=== PATIENT | male | born 1945 | race Caucasian/White ===

== ENCOUNTER 2020-04-27 12:41 | Observation (INO) | payer OTHER ==
[~2020-04-27] VITALS: Ht 172.7 cm; Wt 68.0 kg
[~2020-04-27 12:41] MED LIST: B-122500 MCG SL; BETAPACE80 MG PO; CHLORTHALIDONE50 MG PO; COUMADIN3 MG PO; COUMADIN4 MG PO; ECOTRIN81 MG PO; ELIQUIS5 M1 PO; FISH OIL 1,2001 EAC2 PO; GLUCOTROL5 MG PO; HYDRALAZINE HC100 MG PO; IMDUR ER TAB 3030 MG PO; KEFLEX CAP 500500 MG PO; KLOR-CON 1010 MEQ PO; LASIX20 MG PO; NIACIN ER500 MG PO; NIACIN250 MG PO; NIACIN500 M1 PO; NORVASC10 MG PO; PANTOPRAZOLE SO20 MG PO; PROTONIX40 MG PO; SINEMET 25-1001 EACH PO; SINEMET 25/100 T1 EA PO; TAMIFLU75 MG PO; THERAGRAN M TAB1 EA PO; ZESTRIL20 MG PO
[2020-04-27 13:23] LABS: HEMOGLOBIN 10.4 gm/dl (14.0-17.5); RED BLOOD COUNT 3.23 M/UL (4.20-5.50); WHITE BLOOD COUNT 10.4 K/UL (4.5-11.0)
[2020-04-27] MEDS ORDERED: LOPRESSOR 25 MG25 MG PO (15:52)
[2020-04-27] MEDS ORDERED: ALDACTONE50 MG PO (15:53)
[2020-04-27] MEDS ORDERED: VITAMIN B-1100 MG PO (15:53)
[2020-04-27] MEDS ORDERED: VITAMIN C500 M4 PO (16:02)
[2020-04-27] MEDS ORDERED: PROBIOTIC1 EAC1 PO (16:03)
[2020-04-28 00:51] LABS: HEMOGLOBIN 9.5 gm/dl (14.0-17.5); RED BLOOD COUNT 2.93 M/UL (4.20-5.50); WHITE BLOOD COUNT 8.6 K/UL (4.5-11.0)
[2020-04-28 01:14] LABS: BUN/CREATININE RATIO 27 (0-10)
[2020-04-30] MEDS ORDERED: LIPITOR TAB 2020 MG PO (17:00)
[2020-04-30] MEDS ORDERED: NICOTINE PATCH1 EAC2 TOP (17:00)
[2020-04-30] MEDS ORDERED: ASPIRIN EC81 MG PO (17:00)
[2020-04-30] MEDS ORDERED: NITROGLYCERIN0.4 MG SL (17:00)
[2020-06-14] MEDS ORDERED: ELIQUIS5 MG PO (07:34)
[2020-06-14] MEDS ORDERED: HYDRALAZINE HCL50 MG PO (07:35)
[2020-06-14] MEDS ORDERED: POTASSIUM CHLO20 ME1 PO (07:35)
[2020-06-14] MEDS ORDERED: SPIRONOLACTONE50 MG PO (07:36)
[2020-06-14] MEDS ORDERED: ST. JOSEPH ASPI81 M1 PO (07:36)
== END 2020-04-30 17:37 | disposition home or self-care (01) ==
LOC: ER1 12:41 → M/S 14:17 → CDU 14:17 → M/S 19:37
PROVIDERS: Emergency Medicine; Internal Medicine Cardiovascular Disease; Physician Assistant; Physician Assistant Medical; ADMIT Internal Medicine
DX: I25.110 Atherosclerotic heart disease of native coronary artery with unstable angina pectoris (principal); I25.5 Ischemic cardiomyopathy; I13.0 Hypertensive heart and chronic kidney disease with heart failure and stage 1 through stage 4 chronic kidney disease, or unspecified chronic kidney disease; E11.22 Type 2 diabetes mellitus with diabetic chronic kidney disease; N18.30 Chronic kidney disease, stage 3 unspecified; I50.32 Chronic diastolic (congestive) heart failure; I48.0 Paroxysmal atrial fibrillation; E78.5 Hyperlipidemia, unspecified; I25.2 Old myocardial infarction; I45.9 Conduction disorder, unspecified; F17.210 Nicotine dependence, cigarettes, uncomplicated; Z95.5 Presence of coronary angioplasty implant and graft; Z20.822 Contact with and (suspected) exposure to COVID-19; Z82.49 Family history of ischemic heart disease and other diseases of the circulatory system; Z79.01 Long term (current) use of anticoagulants; Z79.899 Other long term (current) drug therapy
CPT/HCPCS: ECHO; 36415; 71045; 78452; 80048; 80053; 80061; 82550; 82553; 82962; 83690; 83735; 83874; 83880; 84100; 84439; 84443; 84484; 85025; 85027; 85610; 85730; 93005; 93017; 93306; 94760; 96372; 96374; 96375; 99152; 99153; 99285; A9502; C1769; G0378; J0360; J1644; J2250; J2785; Q9965; U0002

== ENCOUNTER → 2020-05-25 | Outpatient (CLI) | payer OTHER ==
[~2020-05-25] MED LIST changes: +ALDACTONE50 MG PO; +AMIODARONE HCL200 MG PO; +ASPIRIN EC81 MG PO; +CEPHALEXIN500 MG PO; +CLINDAMYCIN HC300 MG PO; +ELIQUIS5 MG PO; +FERGON PO; +FISH OIL 1,2001 EAC1 PO; +HYDRALAZINE HCL50 MG PO; +HYDROCODON-ACE1 EAC4 PO; +LASIX40 MG PO; +LIPITOR TAB 2020 MG PO; +LIPITOR20 MG PO; +LOPRESSOR 25 MG25 MG PO; +MULTIVITAMIN1 EACH PO; +NICOTINE PATCH1 EAC2 TOP; +NITROGLYCERIN0.4 MG SL; +POTASSIUM CHLO20 ME1 PO; +PROBIOTIC1 EAC1 PO; +PROBIOTIC1 EAC2 PO; +PROTONIX 40 MG40 M1 PO; +SPIRONOLACTONE50 MG PO; +ST. JOSEPH ASPI81 M1 PO; +VITAMIN B-1100 M1 PO; +VITAMIN B-1100 MG PO; +VITAMIN C500 M4 PO
[2020-05-25 09:47] LABS: RED BLOOD COUNT 2.78 M/UL (4.20-5.50); WHITE BLOOD COUNT 10.4 K/UL (4.5-11.0)
== END ==
LOC: LAB 09:22
PROVIDERS: Internal Medicine Cardiovascular Disease
DX: I50.22 Chronic systolic (congestive) heart failure (principal); I25.5 Ischemic cardiomyopathy; I45.9 Conduction disorder, unspecified
CPT/HCPCS: 36415; 80048; 85025

== ENCOUNTER 2020-05-27 07:16 | Outpatient (CLI) | payer OTHER ==
[~2020-05-27] VITALS: Ht 172.7 cm; Wt 63.5 kg
[~2020-05-27 07:16] MED LIST changes: -AMIODARONE HCL200 MG PO; -CEPHALEXIN500 MG PO; -CLINDAMYCIN HC300 MG PO; -ELIQUIS5 MG PO; -FERGON PO; -FISH OIL 1,2001 EAC1 PO; -HYDRALAZINE HCL50 MG PO; -HYDROCODON-ACE1 EAC4 PO; -LASIX40 MG PO; -LIPITOR20 MG PO; -MULTIVITAMIN1 EACH PO; -POTASSIUM CHLO20 ME1 PO; -PROBIOTIC1 EAC2 PO; -PROTONIX 40 MG40 M1 PO; -SPIRONOLACTONE50 MG PO; -ST. JOSEPH ASPI81 M1 PO; -VITAMIN B-1100 M1 PO
[2020-05-27] MEDS ORDERED: ELIQUIS5 MG PO (08:46)
[2020-05-27] MEDS ORDERED: SINEMET 25-1001 EACH PO (08:47)
[2020-05-27] MEDS ORDERED: FERGON PO (08:47)
[2020-05-27] MEDS ORDERED: FISH OIL 1,2001 EAC1 PO (08:50)
[2020-05-27] MEDS ORDERED: LASIX40 MG PO (08:50)
[2020-05-27] MEDS ORDERED: HYDRALAZINE HCL50 MG PO (08:50)
[2020-05-27] MEDS ORDERED: MULTIVITAMIN1 EACH PO (08:53)
[2020-05-27] MEDS ORDERED: LOPRESSOR 25 MG25 MG PO (08:53)
[2020-05-27] MEDS ORDERED: VITAMIN B-1100 M1 PO (08:54)
[2020-05-27] MEDS ORDERED: POTASSIUM CHLO20 ME1 PO (08:54)
[2020-05-27] MEDS ORDERED: PROBIOTIC1 EAC2 PO (08:54)
[2020-05-27] MEDS ORDERED: PROTONIX 40 MG40 M1 PO (08:54)
[2020-05-27] MEDS ORDERED: ALDACTONE50 MG PO (08:54)
[2020-05-27] MEDS ORDERED: VITAMIN C500 M4 PO (08:55)
[2020-05-27] MEDS ORDERED: ECOTRIN81 MG PO (08:55)
[2020-05-27] MEDS ORDERED: LIPITOR20 MG PO (08:55)
[2020-05-27] MEDS ORDERED: CLINDAMYCIN HC300 MG PO (11:11)
[2020-05-27] MEDS ORDERED: HYDROCODON-ACE1 EAC4 PO (11:11)
[2020-05-27] MEDS ORDERED: CEPHALEXIN500 MG PO (11:11)
[2020-05-27] MEDS ORDERED: AMIODARONE HCL200 MG PO (12:50)
[2020-06-14] MEDS ORDERED: ELIQUIS5 MG PO (07:34)
[2020-06-14] MEDS ORDERED: HYDRALAZINE HCL50 MG PO (07:35)
[2020-06-14] MEDS ORDERED: POTASSIUM CHLO20 ME1 PO (07:35)
[2020-06-14] MEDS ORDERED: ST. JOSEPH ASPI81 M1 PO (07:36)
[2020-06-14] MEDS ORDERED: SPIRONOLACTONE50 MG PO (07:36)
== END 2020-05-28 11:35 | disposition home or self-care (01) ==
LOC: CATH 07:16 → PROG CARE 14:20 → CATH 05-28 11:35
DX: I13.0 Hypertensive heart and chronic kidney disease with heart failure and stage 1 through stage 4 chronic kidney disease, or unspecified chronic kidney disease (principal); E11.22 Type 2 diabetes mellitus with diabetic chronic kidney disease; N18.30 Chronic kidney disease, stage 3 unspecified; I50.22 Chronic systolic (congestive) heart failure; I25.5 Ischemic cardiomyopathy; I48.0 Paroxysmal atrial fibrillation; I25.10 Atherosclerotic heart disease of native coronary artery without angina pectoris; I25.2 Old myocardial infarction; K74.60 Unspecified cirrhosis of liver; F17.210 Nicotine dependence, cigarettes, uncomplicated; J44.9 Chronic obstructive pulmonary disease, unspecified; E78.5 Hyperlipidemia, unspecified; Z95.5 Presence of coronary angioplasty implant and graft; Z88.8 Allergy status to other drugs, medicaments and biological substances; Z79.82 Long term (current) use of aspirin; Z79.01 Long term (current) use of anticoagulants; Z79.899 Other long term (current) drug therapy
CPT/HCPCS: 33225; 33249; 71045; 93005; 93641; 99152; 99153; C1769; C1777; C1882; C1898; C1900; J1644; J2250; J2270; J2550; J3010; J3370; J7040; J7050; J7070; Q9965

== ENCOUNTER 2020-06-02 17:10 | Inpatient (IN) | payer OTHER ==
[~2020-06-02] VITALS: Ht 172.7 cm; Wt 65.8 kg
[~2020-06-02 17:10] MED LIST changes: +AMIODARONE HCL200 MG PO; +CEPHALEXIN500 MG PO; +CLINDAMYCIN HC300 MG PO; +ELIQUIS5 MG PO; +FERGON PO; +FISH OIL 1,2001 EAC1 PO; +HYDRALAZINE HCL50 MG PO; +HYDROCODON-ACE1 EAC4 PO; +LASIX40 MG PO; +LIPITOR20 MG PO; +MULTIVITAMIN1 EACH PO; +POTASSIUM CHLO20 ME1 PO; +PROBIOTIC1 EAC2 PO; +PROTONIX 40 MG40 M1 PO; +VITAMIN B-1100 M1 PO
[2020-06-02 19:06] LABS: HEMOGLOBIN 8.8 gm/dl (14.0-17.5); RED BLOOD COUNT 2.9 M/UL (4.20-5.50); WHITE BLOOD COUNT 14.5 K/UL (4.5-11.0)
[2020-06-04 04:06] LABS: HEMOGLOBIN 7.2 gm/dl (14.0-17.5)
[2020-06-04 04:36] LABS: RED BLOOD COUNT 2.33 M/UL (4.20-5.50); WHITE BLOOD COUNT 8.6 K/UL (4.5-11.0)
--- NOTE | 2020-06-04 14:47 | NUR ---
1200: NOTIFIED DR. MOROCHO OF BP 82/21, PATIENT IN NO ACUTE DISTRESS. NEW ORDER FOR 500 ML NS BOLUS NOTED.
[2020-06-04 19:55] LABS: HEMOGLOBIN 7.6 gm/dl (14.0-17.5)
[2020-06-05 03:43] LABS: HEMOGLOBIN 7.7 gm/dl (14.0-17.5); RED BLOOD COUNT 2.58 M/UL (4.20-5.50); WHITE BLOOD COUNT 7.6 K/UL (4.5-11.0)
[2020-06-14] MEDS ORDERED: ELIQUIS5 MG PO (07:34)
[2020-06-14] MEDS ORDERED: HYDRALAZINE HCL50 MG PO (07:35)
[2020-06-14] MEDS ORDERED: POTASSIUM CHLO20 ME1 PO (07:35)
[2020-06-14] MEDS ORDERED: SPIRONOLACTONE50 MG PO (07:36)
[2020-06-14] MEDS ORDERED: ST. JOSEPH ASPI81 M1 PO (07:36)
== END 2020-06-05 18:50 | disposition home or self-care (01) | DRG 378 ==
LOC: ER1 17:10 → MED SURG 4 23:13 → CDU 23:13 → MED SURG 4 23:13
PROVIDERS: Internal Medicine; Internal Medicine Nephrology; Physician Assistant; ADMIT Internal Medicine
DX: K92.2 Gastrointestinal hemorrhage, unspecified (principal); K52.1 Toxic gastroenteritis and colitis; N17.9 Acute kidney failure, unspecified; E87.1 Hypo-osmolality and hyponatremia; D62 Acute posthemorrhagic anemia; I13.0 Hypertensive heart and chronic kidney disease with heart failure and stage 1 through stage 4 chronic kidney disease, or unspecified chronic kidney disease; I50.22 Chronic systolic (congestive) heart failure; N18.4 Chronic kidney disease, stage 4 (severe); A08.8 Other specified intestinal infections; E86.0 Dehydration; I25.10 Atherosclerotic heart disease of native coronary artery without angina pectoris; E78.5 Hyperlipidemia, unspecified; E11.9 Type 2 diabetes mellitus without complications; J44.9 Chronic obstructive pulmonary disease, unspecified; Z20.822 Contact with and (suspected) exposure to COVID-19; E87.5 Hyperkalemia; I48.0 Paroxysmal atrial fibrillation; I25.5 Ischemic cardiomyopathy; E86.1 Hypovolemia; F17.200 Nicotine dependence, unspecified, uncomplicated; Z66 Do not resuscitate; E11.40 Type 2 diabetes mellitus with diabetic neuropathy, unspecified; T47.4X5A Adverse effect of other laxatives, initial encounter; E11.22 Type 2 diabetes mellitus with diabetic chronic kidney disease; Z95.1 Presence of aortocoronary bypass graft; Z95.810 Presence of automatic (implantable) cardiac defibrillator; Z90.49 Acquired absence of other specified parts of digestive tract; Z82.49 Family history of ischemic heart disease and other diseases of the circulatory system; Z88.8 Allergy status to other drugs, medicaments and biological substances; Z72.89 Other problems related to lifestyle; Y92.89 Other specified places as the place of occurrence of the external cause
CPT/HCPCS: 36415; 36430; 71045; 80048; 80053; 81001; 82272; 82550; 82553; 82570; 82728; 82962; 83540; 83550; 83735; 83935; 84100; 84133; 84156; 84300; 84484; 85014; 85018; 85025; 85045; 86850; 86900; 86901; 86920; 87449; 89050; 96374; 99284; G0378; J2405; J7030; J7040; J7120; P9016; U0002

== ENCOUNTER → 2020-06-14 | Day surgery (SDC) | payer OTHER ==
[~2020-06-14] MED LIST changes: +SPIRONOLACTONE50 MG PO; +ST. JOSEPH ASPI81 M1 PO
== END | disposition home or self-care (01) ==
LOC: OR 06:52
DX: D12.0 Benign neoplasm of cecum (principal); K57.30 Diverticulosis of large intestine without perforation or abscess without bleeding; K29.50 Unspecified chronic gastritis without bleeding; K29.80 Duodenitis without bleeding; K31.7 Polyp of stomach and duodenum; K76.6 Portal hypertension; K31.89 Other diseases of stomach and duodenum; K64.1 Second degree hemorrhoids; D50.0 Iron deficiency anemia secondary to blood loss (chronic); I11.0 Hypertensive heart disease with heart failure; I50.22 Chronic systolic (congestive) heart failure; I25.10 Atherosclerotic heart disease of native coronary artery without angina pectoris; I48.20 Chronic atrial fibrillation, unspecified; K21.9 Gastro-esophageal reflux disease without esophagitis; F17.200 Nicotine dependence, unspecified, uncomplicated; Z88.8 Allergy status to other drugs, medicaments and biological substances; Z79.01 Long term (current) use of anticoagulants; Z79.82 Long term (current) use of aspirin; Z79.899 Other long term (current) drug therapy
CPT/HCPCS: J2001; J2704; J7040

== ENCOUNTER → 2020-07-21 | Outpatient (CLI) | payer OTHER | LOC: CT 13:56 | DX: D50.0 Iron deficiency anemia secondary to blood loss (chronic) (principal); J90 Pleural effusion, not elsewhere classified; N32.9 Bladder disorder, unspecified | CPT/HCPCS: 82565; 84520; Q9967 ==

== ENCOUNTER 2020-08-18 02:33 | Emergency (ER) | payer OTHER ==
[2020-08-18 03:13] LABS: HEMOGLOBIN 13.2 gm/dl (14.0-17.5); RED BLOOD COUNT 4.1 M/UL (4.20-5.50)
[2020-08-18 03:46] LABS: BUN/CREATININE RATIO 13 (0-10)
== END 2020-08-18 05:13 | disposition short-term general hospital (02) ==
LOC: ER1 02:33
PROVIDERS: Family Medicine
DX: I61.3 Nontraumatic intracerebral hemorrhage in brain stem (principal); I11.9 Hypertensive heart disease without heart failure; Z90.49 Acquired absence of other specified parts of digestive tract; F17.210 Nicotine dependence, cigarettes, uncomplicated; Z20.822 Contact with and (suspected) exposure to COVID-19
CPT/HCPCS: 31500; 70450; 71045; 80053; 82550; 82553; 83874; 84484; 85025; 85610; 93005; 94002; 96374; 99285; J2250; J2704; J7168; U0002